=== PATIENT | female | born 1980 | race Caucasian/White ===

== ENCOUNTER 2020-11-08 13:15 | Emergency (ER) | payer OTHER ==
[~2020-11-08] VITALS: Ht 175.3 cm; Wt 65.8 kg
[2020-11-08 16:17] LABS: ABSOLUTE NEUTROPHILS 5.2 thou/uL (1.4-8.2); BASOPHILS 0.7 % (0.0-2.0); EOSINOPHILS 0.5 % (0.0-3.0); HEMATOCRIT 39.6 % (37.0-47.0); LYMPHOCYTES 20.3 % (24.0-44.0); MCH 30.3 pg (26.0-34.0); MCHC 32.9 g/dL (28.0-37.0); MCV 91.8 fL (80.0-100.0); MONOCYTES 7.7 % (1.0-8.0); PLATELET COUNT 256 thou/uL (150-400); POLYS 70.8 % (36.0-66.0); RBC 4.31 mil/uL (4.20-5.00); RDW 15.1 % (10.5-14.5); WBC 7.3 thou/uL (4.0-11.0)
[2020-11-08 16:33] LABS: CALCIUM 8.8 mg/dL (8.5-10.1); POTASSIUM 4.2 mmol/L (3.5-5.1)
[2020-11-08] MEDS ORDERED: PERCOCET PO (19:45)
[2020-11-08] MEDS ORDERED: CLEOCIN HCL300 MG PO (19:45)
[2020-11-08] MEDS ORDERED: AUGMENTIN600 MG/5 M PO ×3 (20:23→20:31)
[2020-11-08] MEDS ORDERED: PERCOCET 5-3251 EACH PO ×3 (20:23→20:31)
[2020-11-08] MEDS ORDERED: CLEOCIN PA75 MG/5 ML PO ×3 (20:23→20:31)
[2020-11-08 20:43] VITALS: BP 147/76
[2020-11-09] MEDS ORDERED: PROTONIX40 M2 PO (17:38)
[2020-11-09] MEDS ORDERED: CARAFATE1 GM/10 ML PO (17:38)
[2020-11-09] MEDS ORDERED: NOLVADEX20 MG PO (17:39)
[2020-11-09] MEDS ORDERED: HYDROXYZINE HCL25 M2 PO (17:40)
[2020-11-09] MEDS ORDERED: ROXICODONE5 M2 PO (20:05)
== END 2020-11-08 19:58 | disposition home or self-care (01) ==
LOC: ER 13:15
PROVIDERS: Emergency Medicine
DX: L03.211 Cellulitis of face (principal); G89.18 Other acute postprocedural pain; Z90.710 Acquired absence of both cervix and uterus; Z88.2 Allergy status to sulfonamides; Z88.8 Allergy status to other drugs, medicaments and biological substances

== ENCOUNTER 2020-11-09 16:38 | Emergency (ER) | payer OTHER ==
[~2020-11-09] VITALS: Ht 175.3 cm; Wt 65.8 kg
[~2020-11-09 16:38] MED LIST: AUGMENTIN600 MG/5 M PO; CLEOCIN HCL300 MG PO; CLEOCIN PA75 MG/5 ML PO; PERCOCET 5-3251 EACH PO; PERCOCET PO
[2020-11-09] MEDS ORDERED: CARAFATE1 GM/10 ML PO (17:38)
[2020-11-09] MEDS ORDERED: PROTONIX40 M2 PO (17:38)
[2020-11-09] MEDS ORDERED: NOLVADEX20 MG PO (17:39)
[2020-11-09] MEDS ORDERED: HYDROXYZINE HCL25 M2 PO (17:40)
[2020-11-09 18:38] LABS: ABSOLUTE NEUTROPHILS 3.8 thou/uL (1.4-8.2); BASOPHILS 0.6 % (0.0-2.0); HEMATOCRIT 38.6 % (37.0-47.0); HEMOGLOBIN 12.9 gm/dL (12.0-15.0); LYMPHOCYTES 26.8 % (24.0-44.0); MCH 30.7 pg (26.0-34.0); MCHC 33.3 g/dL (28.0-37.0); PLATELET COUNT 220 thou/uL (150-400); POLYS 60.6 % (36.0-66.0); RBC 4.19 mil/uL (4.20-5.00); RDW 14.8 % (10.5-14.5); WBC 6.3 thou/uL (4.0-11.0)
[2020-11-09 18:46] LABS: CALCIUM 8.6 mg/dL (8.5-10.1); POTASSIUM 3.2 mmol/L (3.5-5.1)
[2020-11-09] MEDS ORDERED: ROXICODONE5 M2 PO (20:05)
[2020-11-09 20:26] VITALS: BP 120/90
== END 2020-11-09 20:29 | disposition home or self-care (01) ==
LOC: ER 16:38
PROVIDERS: Emergency Medicine
DX: G89.18 Other acute postprocedural pain (principal); K08.89 Other specified disorders of teeth and supporting structures; F17.210 Nicotine dependence, cigarettes, uncomplicated; Z90.710 Acquired absence of both cervix and uterus; Z79.899 Other long term (current) drug therapy; Z88.2 Allergy status to sulfonamides; Z88.5 Allergy status to narcotic agent; Z88.8 Allergy status to other drugs, medicaments and biological substances

== ENCOUNTER 2020-12-11 11:28 | Emergency (ER) | payer OTHER ==
[~2020-12-11] VITALS: Ht 175.3 cm; Wt 65.8 kg
[~2020-12-11 11:28] MED LIST changes: +CARAFATE1 GM/10 ML PO; +HYDROXYZINE HCL25 M2 PO; +NOLVADEX20 MG PO; +PROTONIX40 M2 PO; +ROXICODONE5 M2 PO
[2020-12-11] MEDS ORDERED: KLOR-CON 10 ER10 MEQ PO (11:47)
[2020-12-11] MEDS ORDERED: IRON18 M1 PO (11:48)
[2020-12-11] MEDS ORDERED: ONDANSETRON ODT4 MG PO (11:49)
[2020-12-11] MEDS ORDERED: ZOFRAN ODT4 MG PO (11:51)
[2020-12-11] MEDS ORDERED: FAMCYCLOVIR 50500 M1 PO (11:51)
[2020-12-11] MEDS ORDERED: NORCO 10-325 T1 EACH PO ×2 (11:51→16:00)
[2020-12-11] MEDS ORDERED: HYDROCODONE BIT PO ×2 (12:10→12:11)
[2020-12-11 13:19] VITALS: BP 123/84
== END 2020-12-11 13:19 | disposition home or self-care (01) ==
LOC: ER 11:28
DX: B02.9 Zoster without complications (principal); F17.210 Nicotine dependence, cigarettes, uncomplicated; Z90.711 Acquired absence of uterus with remaining cervical stump; Z88.8 Allergy status to other drugs, medicaments and biological substances; Z98.890 Other specified postprocedural states; Z90.49 Acquired absence of other specified parts of digestive tract; Z79.899 Other long term (current) drug therapy; Z88.6 Allergy status to analgesic agent; Z88.5 Allergy status to narcotic agent; Z88.2 Allergy status to sulfonamides

== ENCOUNTER 2021-03-17 10:31 | Emergency (ER) | payer OTHER ==
[~2021-03-17] VITALS: Ht 175.3 cm; Wt 67.1 kg
[~2021-03-17 10:31] MED LIST changes: +FAMCYCLOVIR 50500 M1 PO; +HYDROCODONE BIT PO; +IRON18 M1 PO; +KLOR-CON 10 ER10 MEQ PO; +NORCO 10-325 T1 EACH PO; +ONDANSETRON ODT4 MG PO; +ZOFRAN ODT4 MG PO
[2021-03-17 10:44] LABS: ABSOLUTE NEUTROPHILS 1.4 thou/uL (1.4-8.2); BASOPHILS 0.7 % (0.0-2.0); EOSINOPHILS 4.2 % (0.0-3.0); HEMATOCRIT 39.4 % (37.0-47.0); HEMOGLOBIN 13.5 gm/dL (12.0-15.0); LYMPHOCYTES 51.1 % (24.0-44.0); MCH 31.3 pg (26.0-34.0); MCHC 34.3 g/dL (28.0-37.0); MCV 91.2 fL (80.0-100.0); MONOCYTES 9.1 % (1.0-8.0); PLATELET COUNT 217 thou/uL (150-400); POLYS 34.9 % (36.0-66.0); RBC 4.32 mil/uL (4.20-5.00); RDW 14.2 % (10.5-14.5); WBC 3.9 thou/uL (4.0-11.0)
[2021-03-17] MEDS ORDERED: CYMBALTA30 MG PO (10:53)
[2021-03-17 10:55] LABS: CALCIUM 8.6 mg/dL (8.5-10.1); CREATININE 1.1 mg/dL (0.6-1.0); POTASSIUM 4.3 mmol/L (3.5-5.1)
[2021-03-17 11:01] LABS: ALBUMIN 3.4 g/dL (3.4-5.0); TOTAL BILIRUBIN 0.2 mg/dL (0.2-1.0); TOTAL PROTEIN 7.1 g/dL (6.4-8.2)
[2021-03-17 11:53] LABS: URINE BILIRUBIN NEGATIVE (Negative); URINE BLOOD NEGATIVE (Negative); URINE CLARITY CLEAR; URINE COLOR YELLOW; URINE GLUCOSE-RANDOM* NEGATIVE (Negative); URINE KETONES NEGATIVE (Negative); URINE LEUKOCYTES-REFLEX NEGATIVE (Negative); URINE NITRITE-REFLEX NEGATIVE (Negative); URINE PROTEIN (DIPSTICK) NEGATIVE (Negative); URINE SPECIFIC GRAVITY <= 1.005 (1.005-1.035); URINE UROBILINOGEN 0.2 E.U./dl (0.2-1.0)
[2021-03-17 12:01] LABS: AMP/METHAMP Negative (Negative); BARBITURATES Negative (Negative); BENZODIAZEPINES Negative (Negative); COCAINE Negative (Negative); METHADONE Negative (Negative); OPIATES Negative (Negative); PCP Negative (Negative)
[2021-03-17 12:41] VITALS: BP 142/81
[2021-03-17] MEDS ORDERED: HALOPERIDOL 2 MG2 MG PO (12:50)
== END 2021-03-17 12:50 | disposition home or self-care (01) ==
LOC: ER 10:31
PROVIDERS: Emergency Medicine
DX: F12.188 Cannabis abuse with other cannabis-induced disorder (principal); F17.210 Nicotine dependence, cigarettes, uncomplicated; Z90.710 Acquired absence of both cervix and uterus; Z90.89 Acquired absence of other organs; Z90.49 Acquired absence of other specified parts of digestive tract; Z85.3 Personal history of malignant neoplasm of breast; Z88.1 Allergy status to other antibiotic agents; Z88.2 Allergy status to sulfonamides; Z88.6 Allergy status to analgesic agent

== ENCOUNTER 2021-04-26 15:41 | Emergency (ER) | payer OTHER ==
[~2021-04-26] VITALS: Ht 175.3 cm; Wt 65.8 kg
[~2021-04-26 15:41] MED LIST changes: +CYMBALTA30 MG PO; +HALOPERIDOL 2 MG2 MG PO
[2021-04-26 18:56] VITALS: BP 133/91
== END 2021-04-26 18:53 | disposition home or self-care (01) ==
LOC: ER 15:41
DX: S49.91XA Unspecified injury of right shoulder and upper arm, initial encounter (principal); M54.2 Cervicalgia; F17.210 Nicotine dependence, cigarettes, uncomplicated; Z90.710 Acquired absence of both cervix and uterus; Z90.49 Acquired absence of other specified parts of digestive tract; Z79.899 Other long term (current) drug therapy; Z79.2 Long term (current) use of antibiotics; Z88.1 Allergy status to other antibiotic agents; Z88.6 Allergy status to analgesic agent; W18.39XA Other fall on same level, initial encounter; Y92.89 Other specified places as the place of occurrence of the external cause; Y93.89 Activity, other specified; Y99.8 Other external cause status